=== PATIENT | female | born 1960 ===

== ENCOUNTER 2024-07-16 14:41 | Outpatient (AMB) | payer MEDICAID, SELFPAY ==
[2024-07-16 15:00] VITALS: BP 197/81; PULSE 100; RESP 18; TEMP 36.8; O2SAT 94; BMI 31.2
--- NOTE | 2024-07-16 15:00 | ORTHONT_ITS ---
Vital signs 07/16/24 15:00 Height 1.55 m Height Method Stated Weight 74.956 kg Weight Measurement Method Standing Scale BMI 31.2 BP 197/81 H Blood Pressure Source Automatic Cuff Blood Pressure Location Right Upper Arm Position Sitting Respiration 18 Pulse 100 Pulse Source Monitor Temp 98.2 F Temp Source Temporal Artery Scan Pulse Oximetry (%) 94 L Oxygen Delivery Method Room Air Med/Allergies Allergies & Medications Allergies bee venom protein (honey bee) Allergy (Severe, Verified 07/16/24 15:01) Anaphylaxis tetracycline Allergy (Severe, Verified 07/16/24 15:01) suicidal Medication Reconciliation acetaminophen 650 mg tablet,extended release 500 mg PO Q8H PRN fever or pain 08/13/20 [History Confirmed 07/16/24] docusate sodium 100 mg capsule (Colace) 100 mg PO BID #60 caps 08/14/20 [Rx Confirmed 07/16/24] hydrocodone 5 mg-acetaminophen 325 mg tablet ([place]) 1 tab PO Q6H PRN pain (scale score 7-10) #20 tabs 08/14/20 [Rx Confirmed 07/16/24] ibuprofen 600 mg tablet 600 mg PO Q8H PRN pain (scale score 4-6) #20 tabs 08/14/20 [Rx Confirmed 07/16/24] acetaminophen 300 mg-codeine 30 mg tablet 1 tab PO Q6H PRN pain #15 tabs 04/06/24 [Rx Confirmed 07/16/24] acetaminophen 300 mg-codeine 30 mg tablet 1 tab PO Q6H PRN pain #30 tabs 04/06/24 [Rx Confirmed 07/16/24] ibuprofen 600 mg tablet 600 mg PO Q6H PRN pain #30 tabs 04/06/24 [Rx Confirmed 07/16/24] meloxicam 7.5 mg tablet 7.5 mg PO QDAY #45 tabs 07/16/24 [Rx] Subjective Visit Visit for: new patient and knee Immunization / Flu Flu Vaccine in the Last 12 Months: Yes Flu Vaccine Exclusion Criteria: Already Received History of Present Illness Chief complaint: KNEE PAIN Date of injury / onset of symptoms: AMEENA Rodriguez is a pleasant 63-year-old female withLeft knee pain. This been ongoing for 4 months after a chiropractor twisted her knee. She has not had any injections. She has been taking a lot of ibuprofen a day. She has been taking 2400 mg. We described that we can try a anti-inflammatory such as meloxicam. 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 Exam Exam Patient is in no acute distress and is cooperative with the examination today. Breathing is nonlabored. Patient has a normal mood and affect. Bilateral extremities were evaluated and demonstrates sensation intact to light touch. Palpable pedal pulses are present. No significant edema is present. Bilateral hips were examined. The patient has no pain with log roll of the hips. Internal rotation to 30 degrees and external rotation to 30 degrees is painless. Negative FADIR. Right knee was examined today. The right knee is in reasonable alignment. Range of motion from 0-120 degrees. Knee is stable to varus and valgus as well as AP translation with <5mm. Patient has a negative McMurrays. There is no pain with patellofemoral compression and no crepitus noted. The knee is nontender to palpation. Left knee was examined today. The left knee is in [varus] alignment. Range of motion from [0-115] degrees. Knee is stable to varus and valgus as well as AP translation with <5mm. Patient has a [negative] McMurrays. There is [no] pain with patellofemoral compression and [no] crepitus noted. The knee is [tender] to palpation [medially]. An MRI demonstrates a degenerative meniscal tear. X-rays demonstrate a mild arthritis Assessment and Plan Problem List (1) Arthritis of left knee: Status: Acute Plan: Patient is a 63-year-old female with left knee pain and left knee arthritis. We will order x-rays That are weightbearing. Will likely get authorization for injections at the next visit she has not had injections. She likely has arthritis. Office Procedures GNS Level of Care Nursing/Assessment Patient Status: Established Patient Nursing Assessment/Reassesment: Medication Reconciliation, Update PMH in EMR and Vital Signs Coordination of Care: Complex Care and Chronic Disease 1-5, Education Complex Pt/Fam, Consent,records obtained, informed consent, Results/Orders obtained and Staff clarify orders Established Patient Charge Established Patient Point Assignment: 95 Established Patient Point Charge: EP Level 3 (80-115) Past Medical History Past Medical History Have you ever been diagnosed with any of the following: Neurological Problems Seizures: No Peripheral Neuropathy: Yes (sciatica both) Head Trauma: Yes (2018 concussion) Cardiology Problems Congestive Heart Failure: No Edema: No Cellulitis: No Hypertension: Yes Respiratory Problems Chronic Obstructive Pulmonary Disease (COPD): No Smoking: No Smoking Exposure: No Genital/Urinary Problems Renal Disease: No Reproductive Problems Endometriosis: Yes Previous Pregnancies: No Musculoskeletal Problems Arthritis: Yes Carpal Tunnel Syndrome: Yes (bilat) Fractures: Yes (nose 2018) Endocrine Problems Diabetes Mellitus Type 1: No Diabetes Mellitus Type 2: Yes Other Problems Falls: Yes (2018 at work) Blood Transfusions: No Anesthesia Reactions: Yes (emotional) Chemotherapy: No Radiation Therapy: No MRSA: No Cancer: No Surgical History Pacemaker: No
== END 2024-07-16 15:16 | disposition home or self-care (01) ==
PROVIDERS: PCP Family Medicine; Referring Provider Family Medicine; Supervising Provider Orthopaedic Surgery Adult Reconstructive Orthopaedic Surgery; Visit Provider Orthopaedic Surgery Adult Reconstructive Orthopaedic Surgery
DX: M17.12 Unilateral primary osteoarthritis, left knee (principal); M25.562 Pain in left knee; I10 Essential (primary) hypertension
CPT/HCPCS: 99213; G0463

== ENCOUNTER 2024-07-30 14:30 | Outpatient (AMB) | payer MEDICAID, SELFPAY ==
[2024-07-30 14:38] VITALS: BP 155/79; PULSE 90; RESP 18; TEMP 36.5; O2SAT 96; BMI 31.4
--- NOTE | 2024-07-30 14:38 | ORTHONT_ITS ---
Vital signs 07/30/24 14:38 Height 1.55 m Height Method Stated Weight 75.438 kg Weight Measurement Method Standing Scale BMI 31.4 BP 155/79 H Blood Pressure Source Automatic Cuff Blood Pressure Location Right Upper Arm Position Sitting Respiration 18 Pulse 90 Pulse Source Monitor Temp 97.7 F Temp Source Temporal Artery Scan Pulse Oximetry (%) 96 Oxygen Delivery Method Room Air Med/Allergies Allergies & Medications Allergies bee venom protein (honey bee) Allergy (Severe, Verified 07/30/24 14:39) Anaphylaxis tetracycline Allergy (Severe, Verified 07/30/24 14:39) suicidal Medication Reconciliation acetaminophen 650 mg tablet,extended release 500 mg PO Q8H PRN fever or pain 08/13/20 [History Confirmed 07/30/24] docusate sodium 100 mg capsule (Colace) 100 mg PO BID #60 caps 08/14/20 [Rx Confirmed 07/30/24] hydrocodone 5 mg-acetaminophen 325 mg tablet ([place]) 1 tab PO Q6H PRN pain (scale score 7-10) #20 tabs 08/14/20 [Rx Confirmed 07/30/24] acetaminophen 300 mg-codeine 30 mg tablet 1 tab PO Q6H PRN pain #15 tabs 04/06/24 [Rx Confirmed 07/30/24] acetaminophen 300 mg-codeine 30 mg tablet 1 tab PO Q6H PRN pain #30 tabs 04/06/24 [Rx Confirmed 07/30/24] ibuprofen 600 mg tablet 600 mg PO Q6H PRN pain #30 tabs 04/06/24 [Rx Confirmed 07/30/24] meloxicam 7.5 mg tablet 7.5 mg PO QDAY #45 tabs 07/16/24 [Rx Confirmed 07/30/24] ibuprofen 600 mg tablet 600 mg PO Q8H PRN pain (scale score 4-6) #60 tabs 07/18/24 [Rx Confirmed 07/30/24] Subjective Visit Visit for: follow up visit and x-rays (RESULTS) Immunization / Flu Flu Vaccine in the Last 12 Months: No Flu Vaccine Exclusion Criteria: No Exclusion Criteria History of Present Illness Chief complaint: XRAY RESULTS Date of injury / onset of symptoms: AMEENA Rodriguez is a pleasant 63-year-old female withLeft knee pain. This been ongoing for 4 months after a chiropractor twisted her knee. She has not had any injections. She has been taking a lot of ibuprofen a day. She has been taking 2400 mg. We described that we can try a anti-inflammatory such as meloxicam. She wants to hold off on a cortisone injection today. 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 Exam Exam Patient is in no acute distress and is cooperative with the examination today. Breathing is nonlabored. Patient has a normal mood and affect. Bilateral extremities were evaluated and demonstrates sensation intact to light touch. Palpable pedal pulses are present. No significant edema is present. Bilateral hips were examined. The patient has no pain with log roll of the hips. Internal rotation to 30 degrees and external rotation to 30 degrees is painless. Negative FADIR. Right knee was examined today. The right knee is in reasonable alignment. Range of motion from 0-120 degrees. Knee is stable to varus and valgus as well as AP translation with <5mm. Patient has a negative McMurrays. There is no pain with patellofemoral compression and no crepitus noted. The knee is nontender to palpation. Left knee was examined today. The left knee is in [varus] alignment. Range of motion from [0-115] degrees. Knee is stable to varus and valgus as well as AP translation with <5mm. Patient has a [negative] McMurrays. There is [no] pain with patellofemoral compression and [no] crepitus noted. The knee is [tender] to palpation [medially]. An MRI demonstrates a degenerative meniscal tear. X-rays demonstrate Significant joint space narrowing medially Assessment and Plan Problem List (1) Arthritis of left knee: Status: Acute Plan: Patient is a 63-year-old female with left knee pain and left knee arthritis. We discussed his significant arthritis of the left knee. She is fine with medications for now and does not want an injection at this time. We discussed that she should call to make an appointment that should she have increased pain or need for an injection Office Procedures GNS Level of Care Nursing/Assessment Patient Status: Established Patient Nursing Assessment/Reassesment: Medication Reconciliation, Update PMH in EMR and Vital Signs Coordination of Care: Complex Care and Chronic Disease 1-5, Education Complex Pt/Fam, Consent,records obtained, informed consent, Results/Orders obtained and Staff clarify orders Established Patient Charge Established Patient Point Assignment: 95 Established Patient Point Charge: EP Level 3 (80-115) Past Medical History Past Medical History Have you ever been diagnosed with any of the following: Neurological Problems Seizures: No Peripheral Neuropathy: Yes (sciatica both) Head Trauma: Yes (2018 concussion) Cardiology Problems Congestive Heart Failure: No Edema: No Cellulitis: No Hypertension: Yes Respiratory Problems Chronic Obstructive Pulmonary Disease (COPD): No Smoking: No Smoking Exposure: No Genital/Urinary Problems Renal Disease: No Reproductive Problems Endometriosis: Yes Previous Pregnancies: No Musculoskeletal Problems Arthritis: Yes Carpal Tunnel Syndrome: Yes (bilat) Fractures: Yes (nose 2018) Endocrine Problems Diabetes Mellitus Type 1: No Diabetes Mellitus Type 2: Yes Other Problems Falls: Yes (2018 at work) Blood Transfusions: No Anesthesia Reactions: Yes (emotional) Chemotherapy: No Radiation Therapy: No MRSA: No Cancer: No Surgical History Pacemaker: No
== END 2024-07-30 14:57 | disposition home or self-care (01) ==
PROVIDERS: PCP Family Medicine; Referring Provider Family Medicine; Supervising Provider Orthopaedic Surgery Adult Reconstructive Orthopaedic Surgery; Visit Provider Orthopaedic Surgery Adult Reconstructive Orthopaedic Surgery
DX: M17.12 Unilateral primary osteoarthritis, left knee (principal); M25.562 Pain in left knee; I10 Essential (primary) hypertension; E11.9 Type 2 diabetes mellitus without complications
CPT/HCPCS: 99213; G0463

== ENCOUNTER 2024-12-05 14:11 | Emergency (ER) | payer MEDICAID, SELFPAY ==
[2024-12-05 14:42] VITALS: BP 146/70; PULSE 87; RESP 18; TEMP 36.9; O2SAT 99
--- NOTE | 2024-12-05 14:46 | XR_ITS ---
Examination: Toes, right foot 3 views Technique: Toes AP oblique lateral 3 views Date and time of exam: December 05, 2024 1452 hours INDICATIONS: Injury to the foot today with second digit pain. FINDINGS: Acute fracture distal aspect proximal phalanx second digit with mild offset on the lateral view No dislocation IMPRESSION: Acute fracture proximal phalanx second digit
--- NOTE | 2024-12-05 14:46 | PD.EDLOWEX ---
Lower Extremity Injury RME/HPI General Chief Complaint: Extremity Injury, Lower Stated Complaint: INJURY TO RIGHT SECOND TOE Time Seen by Provider: 12/05/24 14:17 Arrival date/time: 12/05/24 14:11 RME / HPI RME / HPI Narrative: 64-year-old female patient with significant history of diabetes mellitus, came in for evaluation regarding right second to pain and bruising. Patient accidentally hit her right second toe resulted of bruising, pain, worse with ambulation. Incident happened yesterday. Patient is ambulatory. Denies any other injury. No medication was taken prior to arrival. Related Data Home Medications ?Medication ?Instructions ?Recorded ?Confirmed acetaminophen 650 mg 500 mg PO Q8H PRN fever or pain 08/13/20 07/30/24 tablet,extended release Held on 08/14/20. Instructions: Resume on 08/26/20. Previous Rx's ?Medication ?Instructions ?Recorded docusate sodium 100 mg capsule 100 mg PO BID #60 caps 08/14/20 (Colace) hydrocodone 5 mg-acetaminophen 325 1 tab PO Q6H PRN pain (scale score 08/14/20 mg tablet ([place]) 7-10) #20 tabs acetaminophen 300 mg-codeine 30 mg 1 tab PO Q6H PRN pain #15 tabs 04/06/24 tablet acetaminophen 300 mg-codeine 30 mg 1 tab PO Q6H PRN pain #30 tabs 04/06/24 tablet ibuprofen 600 mg tablet 600 mg PO Q6H PRN pain #30 tabs 04/06/24 ibuprofen 600 mg tablet 600 mg PO Q8H PRN pain (scale 07/18/24 score 4-6) #60 tabs meloxicam 7.5 mg tablet 7.5 mg PO QDAY #45 tabs 11/14/24 Allergies Allergy/AdvReac Type Severity Reaction Status Date / Time bee venom protein (honey bee) Allergy Severe Anaphylaxis Verified 12/05/24 14:16 tetracycline Allergy Severe suicidal Verified 12/05/24 14:16 Review of Systems Review of Systems Narrative Review of Systems: Review of system reviewed and within normal limits except mentioned in HPI ED Exam Narrative Physical exam: VITAL SIGNS: Reviewed. GENERAL APPEARANCE: Alert and interactive, follows commands, no acute distress, HEAD AND FACE: Non-traumatic. ENT: PERRL, pink conjunctivitis, eyelid no trauma, Mucous membrane moist. NECK: Supple, nontender, no nuchal rigidity. CHEST: No tenderness, no crepitus, no paradoxical movement, no retractions. LUNGS: Clear, well ventilated, symmetric, no rales, no wheezing, no ronchi, no stridor, good breath sounds bilaterally. HEART: Regular rate, regular rhythm, no murmur, no gallops. ABDOMEN: Soft, positive bowel sounds, nondistended, no guarding, nontender, no rebound, no masses, RECTAL: Deferred. GENITAL: Deferred. NEUROLOGICAL: Gross motor function intact sensory function intact, Appropriate for age. MUSCULOSKELETAL: low back nontender, full range of motion. EXTREMITIES: Right second toe bruising, tenderness, with limitation range of motion. No cyanosis noted no skin breakdown noted SKIN: Color pink, dry, no rash, no lacerations, no abrasions, no contusions. LYMPHATICS: Deferred. Course Quality Measures none Orders Category Date Time Status XR toe RT min 2V Stat Exams 12/05/24 14:46 Completed Vital Signs Vital signs: Vital Signs Temperature 98.5 F 12/05/24 14:42 Pulse Rate 87 12/05/24 14:42 Respiratory Rate 18 12/05/24 14:42 Blood Pressure 146/70 H 12/05/24 14:42 Pulse Oximetry (%) 99 12/05/24 14:42 Oxygen Delivery Method Room Air 12/05/24 14:42 Extremity Injury, Lower [facility] Narrative [facility] Narrative:: 64-year-old female patient with significant history of diabetes mellitus, came in for evaluation regarding right second to pain and bruising. Patient accidentally hit her right second toe resulted of bruising, pain, worse with ambulation. Incident happened yesterday. Patient is ambulatory. Denies any other injury. No medication was taken prior to arrival. X-ray of the foot showed minimally displaced fracture of the proximal phalanx to the second toe right Ortho shoe applied. Patient data External records reviewed:: None Clinical information provided by:: patient Social determinants that could affect healthcare access:: none Patient has the following chronic illnesses:: None How is presenting disease/condition affected by chronic disease/condition?: no chronic disease Evaluation data The following diagnostics were reviewed and interpreted by me:: radiology exam(s) Lab and/or radiology exams considered but not ordered:: None Interpretation Summary: See results in [facility] Medications / Prescriptions Medications or Prescriptions considered but not ordered:: None Medication administrations:: None Consultations Consultation(s) initiated? (list below): No Diagnosis Extremity Injury, Lower Differential Diagnosis: other (Toe fracture, toe sprain, toe dislocation) Most likely diagnosis given after review of the tests above:: Second toe fracture Admission Indicated Admission indicated?: not indicated Admission Request Was there a request for admission?: No Disposition Plan Disposition Plan: Discharge Discharge Attestation Discharge Attestation: The patient was given an opportunity to ask questions and understood the discharge instructions. Discharge instructions specifically effects, indications for sooner follow up or return to the emergency department, and the expected course of current diagnosis. Patient condition: Stable Discharge Plan Plan Patient Disposition: HOME (Self Care) Disposition Comment: Stable Prescriptions/Referrals Prescriptions/Med Rec: No Action ibuprofen 600 mg tablet 600 mg PO Q8H PRN (Reason: pain (scale score 4-6)) Qty: 60 2RF meloxicam 7.5 mg tablet 7.5 mg PO QDAY Qty: 45 3RF acetaminophen 650 mg tablet extended release 500 mg PO Q8H PRN (Reason: fever or pain) Rx Instructions: swallow whole; do not crush, chew, break, dissolve, cut, or open hydrocodone-acetaminophen [[place]] 5-325 mg tablet 1 tab PO Q6H MDD 4 PRN (Reason: pain (scale score 7-10)) Qty: 20 0RF docusate sodium [Colace] 100 mg capsule 100 mg PO BID Qty: 60 0RF ibuprofen 600 mg tablet 600 mg PO Q6H PRN (Reason: pain) Qty: 30 0RF acetaminophen-codeine 300-30 mg tablet 1 tab PO Q6H PRN (Reason: pain) Qty: 30 0RF acetaminophen-codeine 300-30 mg tablet 1 tab PO Q6H PRN (Reason: pain) Qty: 15 0RF Referrals: Yvan Mcneill [Primary Care Provider] - In 1 week Problem List Clinical Impression: Fracture of toe Patient/Caregiver Discharge Instructions Discharge Activity: activity as tolerated Education Materials: ED Fracture, Toe, Closed Additional Instructions: Thank you for the opportunity for serving you today. You are stable for discharged . You are advised to: Follow-up with your PCP in 1 to 2 days as per referral to podiatry Return to ED for worsening of symptoms Increase oral fluids Please wear the Ortho shoe for the next 4 weeks Take [id number] Tylenol or Motrin as needed for pain Print Language: Malagasy Stand Alone Forms: [facility] Award Info., Patient Portal Info Letter
== END 2024-12-05 18:05 | disposition home or self-care (01) ==
PROVIDERS: Emergency Provider Emergency Medicine; PCP Family Medicine
DX: S92.511A Displaced fracture of proximal phalanx of right lesser toe(s), initial encounter for closed fracture (principal); W22.8XXA Striking against or struck by other objects, initial encounter
CPT/HCPCS: 73660; 99283

== ENCOUNTER → 2025-01-06 | Outpatient (CLI) | payer MEDICAID, SELFPAY ==
--- NOTE | 2025-01-06 | XR_ITS ---
Examination: Foot, right, 3 views Technique: AP, oblique, lateral views foot, 3 views Date and time of exam: December 29, 2024 1205 hours INDICATIONS: History acute fracture proximal phalanx second digit December 05, 2024 FINDINGS: Partial healing fracture distal aspect proximal phalanx second digit with stable and satisfactory alignment IMPRESSION: Partial healing fracture proximal phalanx second digit with stable and satisfactory alignment
== END | disposition home or self-care (01) ==
PROVIDERS: PCP Family Medicine; Referring Provider Podiatrist; Visit Provider Podiatrist
DX: S92.511A Displaced fracture of proximal phalanx of right lesser toe(s), initial encounter for closed fracture (principal); X58.XXXA Exposure to other specified factors, initial encounter
CPT/HCPCS: 73630

== ENCOUNTER 2025-04-10 10:46 | Outpatient (AMB) | payer MEDICAID, SELFPAY ==
[2025-04-10 10:54] VITALS: BP 177/4; PULSE 110; RESP 19; TEMP 36.8; O2SAT 97; BMI 31.7
--- NOTE | 2025-04-10 10:54 | ORTHONT_ITS ---
Vital signs 04/10/25 10:54 Height 1.55 m Height Method Stated Weight 76.317 kg Weight Measurement Method Standing Scale BMI 31.7 BP 177/4 H Blood Pressure Source Automatic Cuff Blood Pressure Location Left Upper Arm Position Sitting Respiration 19 Pulse 110 H Pulse Source Monitor Temp 98.2 F Temp Source Temporal Artery Scan Pulse Oximetry (%) 97 Oxygen Delivery Method Room Air Med/Allergies Allergies & Medications Allergies bee venom protein (honey bee) Allergy (Severe, Verified 04/10/25 10:59) Anaphylaxis tetracycline Allergy (Severe, Verified 04/10/25 10:59) suicidal Medication Reconciliation acetaminophen 650 mg tablet,extended release 500 mg PO Q8H PRN fever or pain 08/13/20 [History Confirmed 04/10/25] Held on 08/14/20. Instructions: Resume on 08/26/20. docusate sodium 100 mg capsule (Colace) 100 mg PO BID #60 caps 08/14/20 [Rx Confirmed 04/10/25] hydrocodone 5 mg-acetaminophen 325 mg tablet (Biloxi) 1 tab PO Q6H PRN pain (scale score 7-10) #20 tabs 08/14/20 [Rx Confirmed 04/10/25] acetaminophen 300 mg-codeine 30 mg tablet 1 tab PO Q6H PRN pain #15 tabs 04/06/24 [Rx Confirmed 04/10/25] acetaminophen 300 mg-codeine 30 mg tablet 1 tab PO Q6H PRN pain #30 tabs [Rx Confirmed 04/10/25] ibuprofen 600 mg tablet 600 mg PO Q6H PRN pain #30 tabs 04/06/24 [Rx Confirmed 04/10/25] ibuprofen 600 mg tablet 600 mg PO Q8H PRN pain (scale score 4-6) #60 tabs 07/18/24 [Rx Confirmed 04/10/25] meloxicam 7.5 mg tablet 7.5 mg PO QDAY #45 tabs 11/14/24 [Rx Confirmed 04/10/25] Exam Exam Patient is in no acute distress and is cooperative with the examination today. Breathing is nonlabored. Patient has a normal mood and affect. Bilateral extremities were evaluated and demonstrates sensation intact to light touch. Palpable pedal pulses are present. No significant edema is present. Bilateral hips were examined. The patient has no pain with log roll of the hips. Internal rotation to 30 degrees and external rotation to 30 degrees is painless. Negative FADIR. Right knee was examined today. The right knee is in reasonable alignment. Range of motion from 0-120 degrees. Knee is stable to varus and valgus as well as AP translation with <5mm. Patient has a negative McMurrays. There is no pain with patellofemoral compression and no crepitus noted. The knee is nontender to palpation. Left knee was examined today. The left knee is in [varus] alignment. Range of motion from [0-115] degrees. Knee is stable to varus and valgus as well as AP translation with <5mm. Patient has a [negative] McMurrays. There is [no] pain with patellofemoral compression and [no] crepitus noted. The knee is [tender] to palpation [medially]. An MRI demonstrates a degenerative meniscal tear. X-rays demonstrate Significant joint space narrowing medially Assessment and Plan Problem List (1) Arthritis of left knee: Status: Acute Plan: Patient is a 63-year-old female with left knee pain and left knee arthritis. We discussed his significant arthritis of the left knee. Recommend knee cortisone injection as patient would like to proceed with conservative treatment at this time. The risks and benefits of the procedure were reviewed with the patient and patient gave verbal consent to continue with the procedure. Procedure: performed by Dr. Alcantara Using sterile technique the left knee was thoroughly prepped with alcohol, and approximately 1 cc of Depo-Medrol 80mg/mL and 4 cc of 0.2% ropivacaine was injected without resistance into the medial tibial femoral joint space. The patient tolerated the procedure. Office Procedures GNS Level of Care Nursing/Assessment Patient Status: Established Patient Nursing Assessment/Reassesment: Medication Reconciliation, Update PMH in EMR and Vital Signs Coordination of Care: Complex Care and Chronic Disease 1-5, Education Complex Pt/Fam, Consent,records obtained, informed consent, Results/Orders obtained and Staff clarify orders Established Patient Charge Established Patient Point Assignment: 95 Established Patient Point Charge: EP Level 3 (80-115) Surgical Proc/IM SQ injection Major Surgical Procedure: Yes (KNEE INJECTION) Medication Given Medication Given Medication Given: Yes Documented Dose Given: 1 Route: Infiitration Medication Given Medication Given Medication Given: Yes Documented Dose Given: 4 Route: Infiitration Office Meds methylprednisolone acetate 80 mg/mL suspension for injection Performing Provider: Laureano Alcantara MD Performing Location: [facility] Administered by: Laureano Alcantara MD on 04/10/25 12:03 Dose Route Admin Location Dispensed Lot Number Expiration Date [facility] Quality Control Clerk 80 mg intra-articular 1 mL [id number] 02/07/27 [address]-2 [facility]aine (PF) 2 mg/mL (0.2 %) injection solution Performing Provider: Laureano Alcantara MD Performing Location: [facility] Administered by: Laureano Alcantara MD on 04/10/25 12:03 Dose Route Admin Location Dispensed Lot Number Expiration Date [facility] Quality Control Clerk 20 mL Infiltration 20 mL [id number] 07/10/26 11592-023-89 [facility] Intake Visit Data Collection New Patient or Established: Established Patient (seen at [facility] within 3 years) Reason for Visit:: REQ L KNEE INJ Seen by Clinical Staff ONLY (RN/MA): No PCP or OBGYN visit in last 3 months: Yes Hx Now: No Do You Feel Safe at Home: Yes Authorities Contacted: N/A Questionairres Past Medical History Past Medical History Have you ever been diagnosed with any of the following: Neurological Problems Seizures: No Peripheral Neuropathy: Yes (sciatica both) Head Trauma: Yes (2018 concussion) Cardiology Problems Congestive Heart Failure: No Edema: No Cellulitis: No Hypertension: Yes Respiratory Problems Chronic Obstructive Pulmonary Disease (COPD): No Smoking: No Smoking Exposure: No Genital/Urinary Problems Renal Disease: No Reproductive Problems Endometriosis: Yes Previous Pregnancies: No Musculoskeletal Problems Arthritis: Yes Carpal Tunnel Syndrome: Yes (bilat) Fractures: Yes (nose 2018) Endocrine Problems Diabetes Mellitus Type 1: No Diabetes Mellitus Type 2: Yes Other Problems Falls: Yes (2018 at work) Blood Transfusions: No Anesthesia Reactions: Yes (emotional) Chemotherapy: No Radiation Therapy: No MRSA: No Cancer: No Surgical History Pacemaker: No Subjective Visit Visit for: follow up visit, knee and injections Immunization / Flu Flu Vaccine in the Last 12 Months: No Flu Vaccine Exclusion Criteria: No Exclusion Criteria History of Present Illness Chief complaint: left knee Jennifer is a pleasant 63-year-old female withLeft knee pain. This been ongoing for 4 months after a chiropractor twisted her knee. She has not had any injections. She has been taking a lot of ibuprofen a day. She has been taking 2400 mg. We described that we can try a anti-inflammatory such as meloxicam. Pain Pain level (0-10): 2 Pain duration: ON AND OFF Pain location: anterior Pain quality: aching Pain timing: increases with activity Ambulatory data Ambulatory device: none Treatments Improvement with previous injections: No Improvement with PT: No Improvement with NSAIDS: yes Review of Systems Review of Systems: All systems negative unless otherwise noted in HPI.
== END 2025-04-10 11:08 | disposition home or self-care (01) ==
LOC: HODSRG 10:46
PROVIDERS: Supervising Provider Orthopaedic Surgery Adult Reconstructive Orthopaedic Surgery; Visit Provider Orthopaedic Surgery Adult Reconstructive Orthopaedic Surgery
DX: M17.12 Unilateral primary osteoarthritis, left knee (principal); M25.562 Pain in left knee; I10 Essential (primary) hypertension; E11.9 Type 2 diabetes mellitus without complications
CPT/HCPCS: 20610; 99213; J1010; J2795; G0463

== ENCOUNTER 2025-07-11 10:38 | Outpatient (AMB) | payer MEDICAID, SELFPAY ==
--- NOTE | 2025-07-11 10:57 | ORTHONT_ITS ---
Vital signs 07/11/25 11:11 Height 1.55 m Height Method Stated Weight 75.75 kg Weight Measurement Method Standing Scale BMI 31.5 BP 149/75 H Blood Pressure Source Automatic Cuff Blood Pressure Location Left Upper Arm Position Sitting Respiration 18 Pulse 93 Pulse Source Monitor Temp 97.8 F Temp Source Temporal Artery Scan Pulse Oximetry (%) 98 Oxygen Delivery Method Room Air Med/Allergies Allergies & Medications Allergies bee venom protein (honey bee) Allergy (Severe, Verified 07/11/25 11:11) Anaphylaxis tetracycline Allergy (Severe, Verified 07/11/25 11:11) suicidal Medication Reconciliation acetaminophen 650 mg tablet,extended release 500 mg PO Q8H PRN fever or pain 08/13/20 [History Confirmed 07/11/25] Held on 08/14/20. Instructions: Resume on 08/26/20. docusate sodium 100 mg capsule (Colace) 100 mg PO BID #60 caps 08/14/20 [Rx Confirmed 07/11/25] hydrocodone 5 mg-acetaminophen 325 mg tablet (Golden) 1 tab PO Q6H PRN pain (scale score 7-10) #20 tabs 08/14/20 [Rx Confirmed 07/11/25] acetaminophen 300 mg-codeine 30 mg tablet 1 tab PO Q6H PRN pain #15 tabs 04/06/24 [Rx Confirmed 07/11/25] acetaminophen 300 mg-codeine 30 mg tablet 1 tab PO Q6H PRN pain #30 tabs 04/06/24 [Rx Confirmed 07/11/25] ibuprofen 600 mg tablet 600 mg PO Q6H PRN pain #30 tabs 04/06/24 [Rx Confirmed 07/11/25] ibuprofen 600 mg tablet 600 mg PO Q8H PRN pain (scale score 4-6) #60 tabs 07/18/24 [Rx Confirmed 07/11/25] meloxicam 7.5 mg tablet 7.5 mg PO QDAY #45 tabs 11/14/24 [Rx Confirmed 07/11/25] Exam Exam Patient is in no acute distress and is cooperative with the examination today. Breathing is nonlabored. Patient has a normal mood and affect. Bilateral extremities were evaluated and demonstrates sensation intact to light touch. Palpable pedal pulses are present. No significant edema is present. Bilateral hips were examined. The patient has no pain with log roll of the hips. Internal rotation to 30 degrees and external rotation to 30 degrees is painless. Negative FADIR. Right knee was examined today. The right knee is in reasonable alignment. Range of motion from 0-120 degrees. Knee is stable to varus and valgus as well as AP translation with <5mm. Patient has a negative McMurrays. There is no pain with patellofemoral compression and no crepitus noted. The knee is nontender to palpation. Left knee was examined today. The left knee is in [varus] alignment. Range of motion from [0-115] degrees. Knee is stable to varus and valgus as well as AP translation with <5mm. Patient has a [negative] McMurrays. There is [no] pain with patellofemoral compression and [no] crepitus noted. The knee is [tender] to palpation [medially]. An MRI demonstrates a degenerative meniscal tear. X-rays demonstrate Significant joint space narrowing medially Assessment and Plan Problem List (1) Arthritis of left knee: Status: Acute Plan: Patient is a 63-year-old female with left knee pain and left knee arthritis. We discussed his significant arthritis of the left knee. Recommend knee cortisone injection as patient would like to proceed with conservative treatment at this time. The risks and benefits of the procedure were reviewed with the patient and patient gave verbal consent to continue with the procedure. Procedure: performed by Dr. Alcantara Using sterile technique the left knee was thoroughly prepped with alcohol, and approximately 1 cc of Depo-Medrol 80mg/mL and 4 cc of 0.2% ropivacaine was injected without resistance into the medial tibial femoral joint space. The patient tolerated the procedure. Office Procedures GNS Level of Care Nursing/Assessment Patient Status: Established Patient Nursing Assessment/Reassesment: Medication Reconciliation, Update PMH in EMR and Vital Signs Coordination of Care: Complex Care and Chronic Disease 1-5, Education Complex Pt/Fam, Consent,records obtained, informed consent, Results/Orders obtained and Staff clarify orders Established Patient Charge Established Patient Point Assignment: 95 Established Patient Point Charge: EP Level 3 (80-115) Medication Given Medication Given Medication Given: No Medication Given Medication Given Medication Given: Yes Documented Dose Given: 1 Route: Infiitration Medication Given Medication Given Medication Given: Yes Documented Dose Given: 4 Route: Infiitration Medication Given Medication Given Medication Given: No Office Meds methylprednisolone acetate 80 mg/mL suspension for injection Performing Provider: Laureano Alcantara MD Performing Location: [facility] Documented (not given) by: Sahra Villaseñor on 07/11/25 11:13 Dose Route Admin Location Dispensed Lot Number Expiration Date Pack age [facility] Account Services Analyst 80 mg intra-articular mL methylprednisolone acetate 80 mg/mL suspension for injection Performing Provider: Laureano Alcantara MD Performing Location: [facility] Administered by: Laureano Alcantara MD on 07/11/25 11:12 Dose Route Admin Location Dispensed Lot Number Expiration Date Pack age [facility] Account Services Analyst 80 mg intra-articular 1 mL [id number] 04/09/27 [address]-3 7 [id number] [employer] ropivacaine (PF) 2 mg/mL (0.2 %) injection solution Performing Provider: Laureano Alcantara MD [facility] Administered by: Laureano Alcantara MD on 07/11/25 11:12 Dose Route Admin Location Dispensed Lot Number Expiration Date Pack age [facility] Account Services Analyst 20 mL Infiltration 20 mL [id number] 10/10/27 06269-445-17 [id number] [facility] ropivacaine (PF) 2 mg/mL (0.2 %) injection solution Performing Provider: Laureano Alcantara MD [facility] Documented (not given) by: Sahra Villaseñor on 07/11/25 11:12 Dose Route Admin Location Dispensed Lot Number Expiration Date Pack age [facility] Account Services Analyst 20 mL Infiltration mL MA Intake Visit Data Collection New Patient or Established: Established Patient (seen at [facility] within 3 years) Reason for Visit:: REQ L KNEE INJ Seen by Clinical Staff ONLY (RN/MA): No PCP or OBGYN visit in last 3 months: Yes Hx Now: No Do You Feel Safe at Home: Yes Authorities Contacted: N/A Questionairres Past Medical History Past Medical History Have you ever been diagnosed with any of the following: Neurological Problems Seizures: No Peripheral Neuropathy: Yes (sciatica both) Head Trauma: Yes (2018 concussion) Cardiology Problems Congestive Heart Failure: No Edema: No Cellulitis: No Hypertension: Yes Respiratory Problems Chronic Obstructive Pulmonary Disease (COPD): No Smoking: No Smoking Exposure: No Genital/Urinary Problems Renal Disease: No Reproductive Problems Endometriosis: Yes Previous Pregnancies: No Musculoskeletal Problems Arthritis: Yes Carpal Tunnel Syndrome: Yes (bilat) Fractures: Yes (nose 2018) Endocrine Problems Diabetes Mellitus Type 1: No Diabetes Mellitus Type 2: Yes Other Problems Falls: Yes (2018 at work) Blood Transfusions: No Anesthesia Reactions: Yes (emotional) Chemotherapy: No Radiation Therapy: No MRSA: No Cancer: No Surgical History Pacemaker: No Subjective Visit Visit for: follow up visit, knee and injections Immunization / Flu Flu Vaccine in the Last 12 Months: No Flu Vaccine Exclusion Criteria: No Exclusion Criteria History of Present Illness Chief complaint: left knee Jennifer is a pleasant 63-year-old female withLeft knee pain. This been ongoing for 4 months after a chiropractor twisted her knee. She has not had any i njections. She has been taking a lot of ibuprofen a day. She has been taking 2400 mg. Pain Pain level (0-10): 2 Pain duration: ON AND OFF Pain location: anterior Pain quality: aching Pain timing: increases with activity Ambulatory data Ambulatory device: none Treatments Improvement with previous injections: No Improvement with PT: No Improvement with NSAIDS: yes Review of Systems Review of Systems: All systems negative unless otherwise noted in HPI.
[2025-07-11 11:11] VITALS: BP 149/75; PULSE 93; RESP 18; TEMP 36.6; O2SAT 98; BMI 31.5
== END 2025-07-11 11:23 | disposition home or self-care (01) ==
LOC: HODSRG 10:38
PROVIDERS: PCP Family Medicine; Referring Provider Family Medicine; Supervising Provider Orthopaedic Surgery Adult Reconstructive Orthopaedic Surgery; Visit Provider Orthopaedic Surgery Adult Reconstructive Orthopaedic Surgery
DX: M25.562 Pain in left knee (principal); M17.12 Unilateral primary osteoarthritis, left knee
CPT/HCPCS: 20610; 99213; J1010; J2795; G0463

== ENCOUNTER 2025-08-07 02:59 | Emergency (ER) | payer MEDICAID, SELFPAY ==
[2025-08-07 03:01] VITALS: BMI 31.9
[2025-08-07 03:06] VITALS: BP 161/74; PULSE 112; RESP 20; TEMP 37.1; O2SAT 98
--- NOTE | 2025-08-07 03:14 | XR_ITS ---
Examination: CT abdomen and pelvis without contrast. Coronal 3-D reconstructions. Sagittal 2-D reconstructions. Date and time of exam: August 07, 2025, 0412 hours INDICATIONS: Right upper abdominal pain today CTDI: vol (mGy): 12.01 DLP: (mGycm): 690 Technique: Axial images of the abdomen have been obtained, 3 mm slice thickness Intravenous contrast material has not been administered. Low dose protocols were performed. One or more of the following dose reduction techniques were used; automated exposure control, adjustment of the mA and/or KV according to patient size, use of iterative reconstruction technique. Findings: Liver mildly irregular in contour Distended gallbladder No splenic lesions No pancreatic or adrenal mass Perinephric stranding,, tiny bilateral 1 mm renal calculi, no hydronephrosis or ureteral calculi Normal appendix No bowel obstruction No bladder mass or bladder calculi Atrophic uterus Bladder prolapse on the lateral view IMPRESSION: Moderate hepatomegaly, suspicious for primary hepatocellular disease Distended gallbladder Tiny nonobstructing bilateral renal calculi Perinephric stranding, consider urinary tract infection nephritis Bladder prolapse
--- NOTE | 2025-08-07 03:15 | XR_ITS ---
Examination: Abdomen sonogram, Limited Date and time of exam: August 07, 2025, 0419 hours INDICATIONS: Right upper abdominal pain beginning several hours ago Technique: Real-time licea scale transabdominal sonographic images of the upper abdomen obtained. Findings: Gallstones Gallbladder wall 0.30 cm Common bile duct 0.70 cm Pancreatic head 2.6 cm Liver 16.0 cm no liver lesions Normal hepatopetal portal venous flow Patent IVC IMPRESSION: Cholelithiasis, negative for cholecystitis Enlarged common bile duct 0.70 cm, clinical correlation advised, no common hepatic duct stones noted
--- NOTE | 2025-08-07 03:16 | EDNOTE_ITS ---
ED Abdominal Pain RME/HPI General Chief Complaint: Abdominal Pain Stated complaint: RIGHT UPPER ABD PAIN Time seen by provider: 08/07/25 03:13 Arrival date/time: 08/07/25 02:59 RME / HPI RME / HPI narrative: See [facility] for Dr. Hall's HPI Documentation. Related Data Home Medications ?Medication ?Instructions ?Recorded ?Confirmed acetaminophen 650 mg 500 mg PO Q8H PRN fever or p ain 08/13/20 07/11/25 tablet,extended release Held on 08/14/20. Instructions: Resume on 08/26/20. Previous Rx's ?Medication ?Instructions ?Recorded docusate sodium 100 mg capsule 100 mg PO BID #60 caps 08/14/20 (Colace) hydrocodone 5 mg-acetaminophen 325 1 tab PO Q6H PRN pa in (scale score 08/14/20 mg tablet ([place]) 7-10) #20 tabs acetaminophen 300 mg-codeine 30 mg 1 tab PO Q6H PRN pa in #15 tabs 04/06/24 tablet acetaminophen 300 mg-codeine 30 mg 1 tab PO Q6H PRN pa in #30 tabs 04/06/24 tablet ibuprofen 600 mg tablet 600 mg PO Q6H PRN pain #30 t abs 04/06/24 ibuprofen 600 mg tablet 600 mg PO Q8H PRN pain (scal e 07/18/24 score 4-6) #60 tabs meloxicam 7.5 mg tablet 7.5 mg PO QDAY #45 tabs 03/0 03/05 Allergies Allergy/AdvReac Type Severity Reaction Status Date / Time bee venom protein (honey bee) Allergy Severe Anaphylaxis Verified 08/07/25 03:00 tetracycline Allergy Severe suicidal Verified 08/07/25 03:00 Review of Systems Review of Systems Systems Reviewed: All systems reviewed, normal except as documented Past Medical History Past Medical History NEUROLOGIC: Positive Peripheral Neuropathy (sciatica both) and Head Trauma (2018 concussion) CARDIAC: Positive Hypertension REPRODUCTIVE: Positive Endometriosis MUSCULOSKELETAL: Positive Musculoskeletal Disorders, Arthritis, Carpal Tunnel Syndrome (bilat) and Fractures (nose 2018) ENT: Positive Head Trauma (2018 concussion) ENDOCRINE: Positive Diabetes Mellitus Type 2 OTHER HISTORY: Positive Falls (2018 at work) and Anesthesia Reactions (emotional) Family History FAMILY HISTORY: Positive Family Cancer (mother colon cancer) and Family Surgery (mother amputation) ED Exam Narrative Physical exam: See [facility] for Dr. Hall's Physical Exam Documentation. Course Quality Measures none Orders Category Date Time Status Saline [Insert IV] NOW Care 08/07/25 03:14 Active Straight [In and Out Catheter] X1 Care 08/07/25 03:[address] abdomen pelvis wo con Stat Exams 08/07/25 03:14 Taken US gall bladder Stat Exams 08/07/25 03:15 Taken Amylase Stat Lab 08/07/25 03:30 Completed Bilirubin,Direct Stat Lab 08/07/25 03:30 Completed CBC Stat Lab 08/07/25 03:30 Completed CMP [Comprehensive Metabolic Panel] Stat Lab 08/07/25 03:30 Completed Lipase Stat Lab 08/07/25 03:30 Completed Magnesium Stat Lab 08/07/25 03:30 Completed UA, C/S IF [Urinalysis, C/S if Indicated] Stat Lab 08/07/25 03:15 Ordered Ketorolac Inj [Toradol Inj] Med 08/07/25 03:14 Discontinued 30 mg IVP X1 ONE Magnesium Sulfate 2 GM Ivpb [Magnesium Sulfate Ivpb] Med 08/07/25 04:23 Active 2 gm in 50 ml IV X1 Morphine* Inj Med 08/07/25 03:14 Discontinued 4 mg IV X1 ONE Ondansetron Inj [Zofran Inj] Med 08/07/25 03:14 Discontinued 4 mg IVP X1 ONE Ondansetron Inj [Zofran Inj] Med 08/07/25 04:31 Discontinued 4 mg IVP X1 ONE Sodium Chloride 0.9% 1000 ml [Ns] 1,000 ml Med 08/07/25 04:45 Active IV 500 mls/hr Sodium Chloride 0.9% 1000 ml [Ns] 1,000 ml Med 08/07/25 03:14 Discontinued IV 999 mls/hr Vital Signs Vital signs: Vital Signs Temperature 98.8 F 08/07/25 03:06 Pulse Rate 112 H 08/07/25 03:06 Respiratory Rate 20 08/07/25 03:06 Blood Pressure 161/74 H 08/07/25 03:06 Pulse Oximetry (%) 98 08/07/25 03:06 Oxygen Delivery Method Room Air 08/07/25 03:06 Abdominal Pain MDM MDM Narrative MDM Narrative:: This section includes all my notes and documentations, including HPI, PE, and ED course. Cecilio Hall MD HPI: 64 y/o female with Hx of HTN and Type II DM here with right sided abdominal pain and vomiting for about 24 hours. No hematemesis or coffee-ground emesis. No rectal bleeding or tarry stools. No fever or chills. No urinary symptoms. No other complaints. ROS: All negative except as documented in HPI. Physical Exam: General: Alert and oriented. In obvious pain with active vomiting. Eyes: Conjunctivae and lids clear. ENT: No nasal congestion. Neck: Supple. Heart: RRR. Lungs: No respiratory distress. Good air movement. No rhonchi, wheezing, ral es. Abdomen: Soft with RUQ tenderness. Decreased sounds. No distension. No rebound or guarding. Back: No CVA tenderness. Skin: Warm and dry. Neuro: Alert and oriented X 3. I ordered IVF, Zofran 4 mg IV, Toradol 30 mg IV, morphine 4 mg IV, and diagnostic tests. At 0600 on 08/07/2025, the care of the patient was transferred to Dr. Cline. Cecilio Hall MD Patient data External records reviewed:: [facility] previous records (Reviewed prior ED records from 12/05/24. Patient was seen for Fracture of toe.) Clinical information provided by:: patient Social determinants that could affect healthcare access:: none Patient has the following chronic illnesses:: Sciatica, Hypertension, Endometriosis, Arthritis, Carpal Tunnel Syndrome, Diabetes Mellitus Type 2 How is presenting disease/condition affected by chronic disease/condition?: exacerbated by Evaluation data The following diagnostics were reviewed and interpreted by me:: lab results and radiology exam(s) Lab and/or radiology exams considered but not ordered:: None Interpretation Summary: Complete diagnostic tests are pending. Medications / Prescriptions Medications or Prescriptions considered but not ordered:: None Medication administrations:: Medication Administration History Magnesium Sulfate (Magnesium Sulfate Ivpb) 2 gm in 50 mls @ 25 mls/hr IV X1 ONE Stop: 08/07/25 06:22 Last Admin: 08/07/25 04:52 Dose: 25 mls/hr Documented By: CCT Sodium Chloride (Ns) 1,000 mls @ 500 mls/hr IV .Q2H ONE Stop: 08/07/25 06:44 Last Admin: 08/07/25 05:30 Dose: 500 mls/hr Documented By: CCT Discontinued Medications Sodium Chloride (Ns) 1,000 mls @ 999 mls/hr IV .Q1H1M ONE Stop: 08/07/25 04:14 Last Infusion: 08/07/25 05:30 Dose: Infused Documented By: Admin: 08/07/25 03:27 Dose: 999 mls/hr Documented By: AC Ketorolac Tromethamine (Ketorolac Inj 30 Mg/Ml Vial) 30 mg IVP X1 ONE Stop: 08/07/25 03:15 Last Admin: 08/07/25 03:28 Dose: 30 mg Documented By: AC Morphine Sulfate (Morphine Sulf Inj 4 Mg/Ml Vial) 4 mg IV X1 ONE Stop: 08/07/25 03:15 Last Admin: 08/07/25 03:28 Dose: 4 mg Documented By: AC Ondansetron HCl (Ondansetron Inj 2 Mg/Ml Inj 2 Ml) 4 mg IVP X1 ONE; Protocol Stop: 08/07/25 03:15 Last Admin: 08/07/25 03:28 Dose: 4 mg Documented By: AC Ondansetron HCl (Ondansetron Inj 2 Mg/Ml Inj 2 Ml) 4 mg IVP X1 ONE; Protocol Stop: 08/07/25 04:32 Last Admin: 08/07/25 04:52 Dose: 4 mg Documented By: CCT I ordered IVF, Zofran 4 mg IV, Toradol 30 mg IV, and morphine 4 mg IV. Consultations Consultation(s) initiated? (list below): No Diagnosis Differential diagnosis abdominal pain: abdominal pain, acute appendicitis, calculus of kidney, constipation, diverticulitis, endometriosis, gastroen teritis, pancreatitis, small bowel obstruction and other (Cholecystitis, Cholelithiasis, gastritis, PUD, GERD) Most likely diagnosis given after review of the tests above:: Complete diagnostic tests are pending. Admission Indicated Admission indicated?: not indicated Explain why admission is indicated or not indicated:: Complete diagnostic tests are pending. Admission Request Was there a request for admission?: No Disposition Plan Disposition Plan: other (specify) (At 0600 on 08/07/2025, the care of the patient was transferred to Dr. Cline. ) Discharge Plan Prescriptions/Referrals Prescriptions/Med Rec: No Action ropivacaine (PF) 2 mg/mL (0.2 %) solution 20 ml Infiltration X1 Qty: 20 0RF methylprednisolone acetate 80 mg/mL suspension 80 mg intra-articular X1 Qty: 1 0RF ibuprofen 600 mg tablet 600 mg PO Q8H PRN (Reason: pain (scale score 4-6)) Qty: 60 2RF meloxicam 7.5 mg tablet 7.5 mg PO QDAY Qty: 45 3RF acetaminophen 650 mg tablet extended release 500 mg PO Q8H PRN (Reason: fever or pain) Rx Instructions: swallow whole; do not crush, chew, break, dissolve, cut, or open hydrocodone-acetaminophen [[place]resco] 5-325 mg tablet 1 tab PO Q6H MDD 4 PRN (Reason: pain (scale score 7-10)) Qty: 20 0RF docusate sodium [Colace] 100 mg capsule 100 mg PO BID Qty: 60 0RF ibuprofen 600 mg tablet 600 mg PO Q6H PRN (Reason: pain) Qty: 30 0RF acetaminophen-codeine 300-30 mg tablet 1 tab PO Q6H PRN (Reason: pain) Qty: 30 0RF acetaminophen-codeine 300-30 mg tablet 1 tab PO Q6H PRN (Reason: pain) Qty: 15 0RF Problem List Clinical Impression: Abdominal pain, Vomiting Patient/Caregiver Discharge Instructions Print Language: Stateless
[2025-08-07] MEDS: SODIUM CHLORIDE 0.9% 1000 ML 1,000 ML 999 ML IV (03:27)
[2025-08-07] MEDS: MORPHINE SULF INJ 4 MG/ML VIAL IV (03:28)
[2025-08-07] MEDS: KETOROLAC INJ 30 MG/ML VIAL IVP (03:28)
[2025-08-07] MEDS: ONDANSETRON INJ 2 MG/ML INJ 2 ML 4 MG IVP ×2 (03:28→04:52)
[2025-08-07 03:52] LABS: Basophils # (Auto) 0.0 Thou/mm3 (0.0-0.2); Basophils % (Auto) 0 % (0-2.5); Eosinophils # (Auto) 0.3 Thou/mm3 (0.0-0.5); Eosinophils % (Auto) 3 % (0-10); Hematocrit 23.5 % (36.0-46.0); Immature Granulocytes Auto 0.07 Thou/mm3 (0.00-0.00); Lymphocytes # (Auto) 1.4 Thou/mm3 (1.0-4.8); Lymphocytes % (Auto) 17 % (10-50); Mean Corpuscular HGB Conc 35.7 g/dl (31.0-37.0); Mean Corpuscular Hemoglobin 31.0 pg (25.0-35.0); Mean Corpuscular Volume 87 fL (80-100); Monocytes # (Auto) 0.5 Thou/mm3 (0.0-0.8); Monocytes % (Auto) 6 % (0-12); Neutrophils # (Auto) 6.1 Thou/mm3 (1.8-7.7); Neutrophils % (Auto) 73 % (37-80); Nucleated Red Blood Cell # 0.00 Thou/mm3 (0.00-0.00); Nucleated Red Blood Cell % 0 /100 WBC (0); Platelet Count 272 Thou/mm3 (140-440); RDW Standard Deviation 40.2 fL (36.4-46.3); Red Blood Count 2.71 Miln/mm3 (4.00-5.20); White Blood Count 8.3 Thou/mm3 (3.6-11.0)
[2025-08-07 04:04] LABS: Hemoglobin 8.4 g/dL (12.0-16.0)
--- NOTE | 2025-08-07 04:06 | PC.NURSE ---
Pt taken to CT via janel
[2025-08-07 04:20] LABS: Alanine Aminotransferase 172 U/L (10-49); Albumin, Serum 5.0 gm/dL (3.4-4.8); Albumin/Globulin Ratio 2.2 (1.2-2.2); Alkaline Phosphatase 153 U/L (46-116); Amylase 99 U/L (30-118); Anion Gap 12 (7-16); Aspartate Amino Transferase 276 U/L (0-34); BUN/Creatinine Ratio 16 Ratio (12-20); Bilirubin,Direct 0.4 mg/dL (0.0-0.3); Bilirubin,Total 0.6 mg/dL (0.3-1.2); Blood Urea Nitrogen 24 mg/dL (9-23); Calcium 9.2 mg/dL (8.3-10.6); Calcium (Corrected) 9.2 mg/dL (8.5-10.1); Carbon Dioxide 21.1 mMol/L (20.0-31.0); Chloride 108 mMol/L (98-107); Creatinine (Component) 1.5 mg/dL (0.6-1.3); Estimated Creatinine Clearance 36.0 mL/min (>60); Globulin 2.3 gm/dL (2.3-3.5); Glucose 233 mg/dL (74-106); Lipase 71 U/L (12-53); Magnesium 1.4 mg/dL (1.6-2.6); Osmolality,Calculated 292 (275-295); Potassium 4.2 mMol/L (3.4-5.1); Sodium 141 mMol/L (136-145); Total Protein 7.3 gm/dL (5.7-8.2); eGFR 39 See Note
[2025-08-07] MEDS: Magnesium Sulfate 2 GM Ivpb 2 GM/50 ML BAG IV (04:52)
[2025-08-07 05:00] VITALS: BP 140/67; PULSE 95; RESP 18; TEMP 37; O2SAT 95
[2025-08-07] MEDS: SODIUM CHLORIDE 0.9% 1000 ML 1,000 ML 500 ML IV (05:30)
[2025-08-07 05:38] LABS: Collection Type, Urine Clean Catch
[2025-08-07 05:42] LABS: Bilirubin,Urine Negative (Negative); Blood,Urine 1+ (Negative); Clarity,Urine Clear (Clear/Hazy); Color,Urine Lt-Yellow (Lt Yel-Yel); Culture Indicated,Urine Not Indicated; Glucose, Urine 1+ (Negative); Ketones,Urine Negative (Negative); Leukocyte Esterase,Urine Negative (Negative); Nitrite,Urine Negative (Negative); PH,Urine 5.5 (5.0-7.0); Protein,Urine 2+ (Neg - Trace); RBC,Urine 2 /hpf (0-3); Specific Gravity,Urine 1.013 (1.001-1.035); Squamous Epithelial Cell,Urine < 1 /hpf (0-5); Urobilinogen,Urine Negative mg/dL (0.0-1.0); WBC,Urine 1 /hpf (0-5)
--- NOTE | 2025-08-07 05:51 | PRELIM_ITS ---
Right upper quadrant abdominal ultrasound with Doppler and wave Doppler spectral analysis. August 07, 2025 at 0419 hours Clinical history: Right upper quadrant tenderness. Technique: Grayscale and color flow images of the right upper quadrant are provided. Hepatic and portal veins were also imaged with color flow images. Comparison: None available at the time of this report. Findings: The liver is normal in echogenicity. No intrahepatic biliary ductal dilatation. Gallstones. Distended gallbladder. No gallbladder wall thickening or pericholecystic fluid is demonstrated. The common bile duct is normal in caliber at 6.6 mm. The pancreas is unremarkable to the extent visualized. The portal vein is patent with hepatopetal flow and normal wave Doppler spectral analysis. The IVC is patent with normal wave Doppler spectral analysis. Lin sign is not available at the time of this report. Impression: Gallstones and distended gallbladder without evidence of acute cholecystitis. If the clinical suspicion for acute cholecystitis is still high consider correlation with HIDA scan. Report Electronically Signed By: Christofer Douglass 08/07/2025 5:50:30 AM [EST]
--- NOTE | 2025-08-07 05:52 | PRELIM_ITS ---
CT scan of the abdomen and pelvis without intravenous contrast (axial sections with sagittal and coronal reformats) August 07, 2025 at 0412 hours Clinical History: Abdominal pain. Comparison: None available at the time of this report. Findings: The lung bases are clear. The pancreas, spleen and adrenals are unremarkable on this noncontrast study. Mild bilateral perinephric fat stranding. Nonobstructing bilateral kidney stones. No hydronephrosis. Mild irregular liver margins. Hepatomegaly. Prominent gallbladder. No evidence of bowel obstruction. The appendix is within normal limits. There is no mesenteric or retroperitoneal adenopathy. Prolapse of the urinary bladder. There is no free fluid or free air. Degenerative changes of the imaged portions of the spine. No acute fractures. Chronic multilevel disc disease. The uterus and ovaries are within normal limits. Impression: 1. Hepatomegaly and probable cirrhosis. 2. Prominent gallbladder, if acute cholecystitis is clinically suspected consider correlation with right upper quadrant ultrasound. 3. Bilateral nonobstructing nephrolithiasis. 4. Mild bilateral perinephric fat stranding, suspicious for medical renal disease. Please, correlate clinically. 5. Urinary bladder prolapse. Report Electronically Signed By: Christofer Douglass 08/07/2025 5:51:14 AM [EST]
--- NOTE | 2025-08-07 07:10 | PC.NURSE ---
pt up to restroom at this time
--- NOTE | 2025-08-07 07:23 | PC.NURSE ---
pt resting in bed in no apparent distress. pt states that pain is better at this time and rates pain 1/10. v/s updated. call light within reach
[2025-08-07 07:25] VITALS: BP 157/75; PULSE 98; RESP 18; TEMP 36.9; O2SAT 96
--- NOTE | 2025-08-07 08:27 | PC.NURSE ---
DR GUTIERREZ IN ROOM TO SPEAK WITH PT REGARDING RESULTS
--- NOTE | 2025-08-07 11:40 | PD.EDADDENDU ---
Emergency Room Addendum Addendum Narrative: 0600: Care assumed from Dr. Hall, the previous shift emergency physician. Past medical, surgical, social and family history reviewed. Vitals and home medications reviewed. I will assume the care of the patient at this time, pending labs, CT, and US. Please refer to the emergency department record for history and examination from initial visit.?The following addendum documentation note is intended to reflect any pending information, findings, or radiology results not included in the patient?s initial chart. I reviewed the labs which was remarkable for Hgb of 8.4, creatinine 1.5, eGFR 36, glucose 233, AST/ALT 276/172, alkaline phosphate 153, and magnesium 1.4. Urinalysis was unremarkable. CT abdomen/pelvis showed enlarged gallbladder and the gallbladder ultrasound showed cholelithiasis and enlarged common bile duct 0.70 cm. Through ED course, the patient was given IV fluids, morphine, toradol, zofran, and magnesium. During my watch, patient has remained gretchen stable. We reviewed all the results, analysis, and treatment plans. Patient is amenable to discharge. Strict return precautions were outlined.
== END 2025-08-07 08:50 | disposition home or self-care (01) ==
PROVIDERS: Emergency Medicine; Emergency Provider Family Medicine; PCP Family Medicine
DX: K80.20 Calculus of gallbladder without cholecystitis without obstruction (principal); K83.8 Other specified diseases of biliary tract
CPT/HCPCS: 36415; 51701; 74176; 76705; 80053; 81001; 82150; 82248; 83690; 83735; 85025; 96361; 96365; 96366; 96375; 96376; 99284; J1885; J2270; J2405; J3475; J7030

== ENCOUNTER 2025-08-07 21:07 | Emergency (ER) | payer MEDICAID, SELFPAY ==
[2025-08-07 21:08] VITALS: BMI 30.9
[2025-08-07 21:15] VITALS: BP 164/71; PULSE 111; RESP 24; TEMP 36.7; O2SAT 99
--- NOTE | 2025-08-07 21:26 | EDNOTE_ITS ---
ED Abdominal Pain RME/HPI General Chief Complaint: Abdominal Pain Stated complaint: RUQ ABD PAIN (HX GALLSTONES) Time seen by provider: 08/07/25 21:26 Arrival date/time: 08/07/25 21:07 RME / HPI RME / HPI narrative: See [facility] for Dr. Hall's HPI Documentation. Related Data Home Medications ?Medication ?Instructions ?Recorded ?Confirmed acetaminophen 650 mg 500 mg PO Q8H PRN fever or p ain 08/13/20 07/11/25 tablet,extended release Held on 08/14/20. Instructions: Resume on 08/26/20. Previous Rx's ?Medication ?Instructions ?Recorded docusate sodium 100 mg capsule 100 mg PO BID #60 caps 08/14/20 (Colace) hydrocodone 5 mg-acetaminophen 325 1 tab PO Q6H PRN pa in (scale score 08/14/20 mg tablet ([place]) 7-10) #20 tabs acetaminophen 300 mg-codeine 30 mg 1 tab PO Q6H PRN pa in #15 tabs 04/06/24 tablet acetaminophen 300 mg-codeine 30 mg 1 tab PO Q6H PRN pa in #30 tabs 04/06/24 tablet ibuprofen 600 mg tablet 600 mg PO Q6H PRN pain #30 t abs 04/06/24 ibuprofen 600 mg tablet 600 mg PO Q8H PRN pain (scal e 07/18/24 score 4-6) #60 tabs meloxicam 7.5 mg tablet 7.5 mg PO QDAY #45 tabs 03/0 03/05 Allergies Allergy/AdvReac Type Severity Reaction Status Date / Time bee venom protein (honey bee) Allergy Severe Anaphylaxis Verified 08/07/25 21:10 tetracycline Allergy Severe suicidal Verified 08/07/25 21:10 Review of Systems Review of Systems Systems Reviewed: All systems reviewed, normal except as documented Past Medical History Past Medical History NEUROLOGIC: Positive Peripheral Neuropathy and Head Trauma CARDIAC: Positive Cardiac Disorders and Hypertension REPRODUCTIVE: Positive Endometriosis MUSCULOSKELETAL: Positive Musculoskeletal Disorders, Arthritis, Carpal Tunnel Syndrome and Fractures ENT: Positive Head Trauma ENDOCRINE: Positive Endocrine Disorders and Diabetes Mellitus Type 2 OTHER HISTORY: Positive Falls and Anesthesia Reactions Family History FAMILY HISTORY: Positive Family Cancer and Family Surgery ED Exam Narrative Physical exam: See [facility] for Dr. Hall's Physical Exam Documentation. Course Quality Measures none Orders Category Date Time Status MRI Screening NOW Care 08/07/25 21:27 Active Saline [Insert IV] NOW Care 08/07/25 21:26 Active Consult to General Surgery Stat Cons 08/07/25 22:31 Ordered MR MRCP Stat Exams 08/07/25 Ordered Bilirubin,Direct Stat Lab 08/07/25 22:59 Completed CBC Stat Lab 08/07/25 22:59 Completed CMP [Comprehensive Metabolic Panel] Stat Lab 08/07/25 22:59 Completed CRP [C-Reactive Protein] Stat Lab 08/07/25 22:59 Completed ESR [Sed Rate (ESR)] Stat Lab 08/07/25 22:59 Completed Lipase Stat Lab 08/07/25 22:59 Completed Magnesium Stat Lab 08/07/25 22:59 Completed Procalcitonin Stat Lab 08/07/25 22:59 Completed HYDROmorphone INJ [Dilaudid Inj] Med 08/07/25 21:26 Discontinued 1 mg IVP X1 ONE Ketorolac Inj [Toradol Inj] Med 08/07/25 21:26 Discontinued 30 mg IVP X1 ONE Ondansetron Inj [Zofran Inj] Med 08/07/25 21:26 Discontinued 4 mg IVP X1 ONE Sodium Chloride 0.9% 1000 ml [Ns] 1,000 ml Med 08/07/25 21:26 Discontinued IV 999 mls/hr Vital Signs Vital signs: Vital Signs Temperature 98.0 F 08/07/25 21:15 Pulse Rate 111 H 08/07/25 21:15 Respiratory Rate 24 H 08/07/25 21:15 Blood Pressure 164/71 H 08/07/25 21:15 Pulse Oximetry (%) 99 08/07/25 21:15 Oxygen Delivery Method Room Air 08/07/25 21:15 Abdominal Pain [facility] Narrative [facility] Narrative:: This section includes all my notes and documentations, including HPI, PE, and ED course. Cecilio Hall MD HPI: 64 y/o female with continued right sided upper abdominal pain and vomiting. Was seen here yesterday. Was discharged with diagnosis of cholelithiasis. No other complaints. ROS: All negative except as documented in HPI. Physical Exam: General: Alert and oriented. In severe pain. Eyes: Conjunctivae and lids clear. ENT: No nasal congestion. Neck: Supple. Heart: RRR. Lungs: No respiratory distress. Good air movement. No rhonchi, wheezing, rales. Abdomen: Soft with RUQ tenderness. Decreased bowel sounds. No distension. No rebound or guarding. Back: No CVA tenderness. Skin: Warm and dry. Neuro: Alert and oriented X 3. I reviewed all diagnostic test results: Blood tests remarkable for T bili 2.1, D bili 1.5, AST 1158, ALT 1181, alk phos 212. At this point, diagnoses include: Biliary colic CBD dilatation LFT elevation Treatment here included: IVF Zofran 4 mg IV Toradol 30 mg IV Dilaudid 1 mg IV Some improvement noted. I discussed the case with our general surgeon, Dr. Meredith. About the presentation and exam and diagnostics and treatments here. And possible need of further care in the hospital. Recommended MRCP. MRCP ordered. At 0600 on 08/08/2025, the care of the patient was transferred to Dr. Cline. Patient pending MRCP. Cecilio Hall MD Patient data External records reviewed:: [facility] previous records (Reviewed prior ED records from 08/07/2025. Patient was seen for Abdominal pain.) Clinical information provided by:: patient Social determinants that could affect healthcare access:: none Patient has the following chronic illnesses:: Peripheral Neuropathy, Hypertension, Endometriosis, Arthritis, Carpal Tunnel Syndrome, Diabetes Mellitus Type 2 How is presenting disease/condition affected by chronic disease/condition?: exacerbated by Evaluation data The following diagnostics were reviewed and interpreted by me:: lab results Lab and/or radiology exams considered but not ordered:: None Interpretation Summary: I reviewed all diagnostic test results: Blood tests remarkable for T bili 2.1, D bili 1.5, AST 1158, ALT 1181, alk phos 212. Medications / Prescriptions Medications or Prescriptions considered but not ordered:: None Medication administrations:: Medication Administration History Discontinued Medications Hydromorphone HCl (Hydromorphone Inj 2 Mg/Ml Vial) 1 mg IVP X1 ONE Stop: 08/07/25 21:27 Last Admin: 08/07/25 23:06 Dose: 1 mg Documented By: LARISSA Sodium Chloride (Ns) 1,000 mls @ 999 mls/hr IV .Q1H1M ONE Stop: 08/07/25 22:26 Last Infusion: 08/08/25 00:52 Dose: Infused Documented By: Admin: 08/07/25 23:04 Dose: 999 mls/hr Documented By: LARISSA Ketorolac Tromethamine (Ketorolac Inj 30 Mg/Ml Vial) 30 mg IVP X1 ONE Stop: 08/07/25 21:27 Last Admin: 08/07/25 23:06 Dose: 30 mg Documented By: LARISSA Ondansetron HCl (Ondansetron Inj 2 Mg/Ml Inj 2 Ml) 4 mg IVP X1 ONE; Protocol Stop: 08/07/25: Last Admin: 08/07/25 23:06 Dose: 4 mg Documented By: LARISSA Treatment here included: IVF Zofran 4 mg IV Toradol 30 mg IV Dilaudid 1 mg IV Consultations Consultation(s) initiated? (list below): Yes Consultation #1 (Physician, Specialty, Details): I discussed the case with our general surgeon, Dr. Matute. About the presentation and exam and diagnostics and treatments here. And possible need of further care in the hospital. Recommended MRCP. Time: 22:24 Diagnosis Differential diagnosis abdominal pain: acute appendicitis, calculus of kidney, constipation, diverticulitis, endometriosis, gastroenteritis, pancreatitis, small bowel obstruction and other (Biliary colic) Most likely diagnosis given after review of the tests above:: Biliary colic CBD dilatation LFT elevation Admission Indicated Admission indicated?: not indicated Explain why admission is indicated or not indicated:: Complete diagnostic tests are pending, including MRCP. Admission Request Was there a request for admission?: No Disposition Plan Disposition Plan: other (specify) (At 0600 on 08/08/2025, the care of the patient was transferred to Dr. Cline. ) Discharge Plan Prescriptions/Referrals Prescriptions/Med Rec: No Action ropivacaine (PF) 2 mg/mL (0.2 %) solution 20 ml Infiltration X1 Qty: 20 0RF methylprednisolone acetate 80 mg/mL suspension 80 mg intra-articular X1 Qty: 1 0RF ibuprofen 600 mg tablet 600 mg PO Q8H PRN (Reason: pain (scale score 4-6)) Qty: 60 2RF meloxicam 7.5 mg tablet 7.5 mg PO QDAY Qty: 45 3RF acetaminophen 650 mg tablet extended release 500 mg PO Q8H PRN (Reason: fever or pain) Rx Instructions: swallow whole; do not crush, chew, break, dissolve, cut, or open hydrocodone-acetaminophen [[place]] 5-325 mg tablet 1 tab PO Q6H MDD 4 PRN (Reason: pain (scale score 7-10)) Qty: 20 0RF docusate sodium [Colace] 100 mg capsule 100 mg PO BID Qty: 60 0RF ibuprofen 600 mg tablet 600 mg PO Q6H PRN (Reason: pain) Qty: 30 0RF acetaminophen-codeine 300-30 mg tablet 1 tab PO Q6H PRN (Reason: pain) Qty: 30 0RF acetaminophen-codeine 300-30 mg tablet 1 tab PO Q6H PRN (Reason: pain) Qty: 15 0RF Referrals: No Primary/Family,Physician [Primary Care Provider] - In 1 week Problem List Clinical Impression: Biliary colic, Common bile duct dilatation, LFT elevation Patient/Caregiver Discharge Instructions Print Language: Malaysian
[2025-08-07] MEDS: SODIUM CHLORIDE 0.9% 1000 ML 1,000 ML 999 ML IV (23:04)
[2025-08-07] MEDS: HYDROmorphone INJ 2 MG/ML VIAL 1 MG IVP (23:06)
[2025-08-07] MEDS: ONDANSETRON INJ 2 MG/ML INJ 2 ML 4 MG IVP (23:06)
[2025-08-07] MEDS: KETOROLAC INJ 30 MG/ML VIAL IVP (23:06)
[2025-08-07 23:09] VITALS: BP 151/65; PULSE 99; RESP 20; O2SAT 98
[2025-08-07 23:15] LABS: Basophils # (Auto) 0.0 Thou/mm3 (0.0-0.2); Basophils % (Auto) 0 % (0-2.5); Eosinophils # (Auto) 0.1 Thou/mm3 (0.0-0.5); Eosinophils % (Auto) 2 % (0-10); Hematocrit 28.9 % (36.0-46.0); Hemoglobin 9.7 g/dL (12.0-16.0); Immature Granulocytes Auto 0.06 Thou/mm3 (0.00-0.00); Lymphocytes # (Auto) 1.0 Thou/mm3 (1.0-4.8); Lymphocytes % (Auto) 14 % (10-50); Mean Corpuscular HGB Conc 33.6 g/dl (31.0-37.0); Mean Corpuscular Hemoglobin 29.8 pg (25.0-35.0); Mean Corpuscular Volume 89 fL (80-100); Monocytes # (Auto) 0.4 Thou/mm3 (0.0-0.8); Monocytes % (Auto) 5 % (0-12); Neutrophils # (Auto) 6.0 Thou/mm3 (1.8-7.7); Neutrophils % (Auto) 79 % (37-80); Nucleated Red Blood Cell # 0.00 Thou/mm3 (0.00-0.00); Nucleated Red Blood Cell % 0 /100 WBC (0); Platelet Count 284 Thou/mm3 (140-440); RDW Standard Deviation 42.5 fL (36.4-46.3); Red Blood Count 3.26 Miln/mm3 (4.00-5.20); White Blood Count 7.7 Thou/mm3 (3.6-11.0)
[2025-08-07 23:28] LABS: Sed Rate (ESR) 48 mm/hr (0-30)
[2025-08-07 23:45] LABS: Albumin, Serum 5.4 gm/dL (3.4-4.8); Albumin/Globulin Ratio 2.3 (1.2-2.2); Alkaline Phosphatase 212 U/L (46-116); Anion Gap 11 (7-16); BUN/Creatinine Ratio 14 Ratio (12-20); Bilirubin,Direct 1.5 mg/dL (0.0-0.3); Bilirubin,Total 2.1 mg/dL (0.3-1.2); Blood Urea Nitrogen 22 mg/dL (9-23); C-Reactive Protein 0.9 mg/dL (0.0-0.9); Calcium 10.0 mg/dL (8.3-10.6); Calcium (Corrected) 10.0 mg/dL (8.5-10.1); Carbon Dioxide 23.9 mMol/L (20.0-31.0); Chloride 110 mMol/L (98-107); Creatinine (Component) 1.6 mg/dL (0.6-1.3); Estimated Creatinine Clearance 34.5 mL/min (>60); Globulin 2.3 gm/dL (2.3-3.5); Glucose 179 mg/dL (74-106); Lipase 80 U/L (12-53); Magnesium 2.0 mg/dL (1.6-2.6); Osmolality,Calculated 296 (275-295); Potassium 4.3 mMol/L (3.4-5.1); Procalcitonin 0.48 ng/ml (0.0-0.49); Sodium 145 mMol/L (136-145); Total Protein 7.7 gm/dL (5.7-8.2); eGFR 36 See Note
[2025-08-07 23:50] LABS: Alanine Aminotransferase 1181 U/L (10-49); Aspartate Amino Transferase 1158 U/L (0-34)
--- NOTE | 2025-08-08 | XR_ITS ---
MRI abdomen, without contrast. MRCP Date and time of exam: August 08, 2025, 1055 hours INDICATIONS: Right upper abdominal pain and elevated liver function tests on laboratory examination 3 days ago Technique: Multiple axial and coronal images of the abdomen have been obtained with the Siemens 1.5T MRI scanner. Images obtained included T1 weighted transverse images, T2-weighted transverse images, T2-weighted transverse images fat-suppressed, T2 weighted haste fat suppressed transverse images, T1 weighted images, in and out of phase images, T2-weighted coronal images, breath hold, T2 weighted haze coronal images as well as T2 weighted coronal thick slab images, MRCP. Findings: Multiple gallstones There does appear to be mild edema involving the wall of the gallbladder Coronal image 14 demonstrates a 3 mm stone in the common bile duct Negative for pancreatitis Spleen is not enlarged Perinephric stranding Aorta normal size, no focal liver lesions IMPRESSION: Acute calculus cholecystitis 3 mm stone in the common bile duct, consider ERCP follow-up
[2025-08-08 00:06] VITALS: TEMP 36.7
[2025-08-08 03:05] VITALS: BP 143/67; PULSE 94; RESP 18; TEMP 36.6; O2SAT 94
[2025-08-08 07:48] VITALS: BP 168/82; PULSE 90; RESP 12; TEMP 36.8; O2SAT 94
--- NOTE | 2025-08-08 08:22 | EDNOTE_ITS ---
Emergency Room Addendum <Delaney Moore - Last Filed: 08/08/25 12:26> Addendum Narrative: 0600: Care assumed from Dr. Hall, the previous shift emergency physician. Past medical, surgical, social and family history reviewed. Vitals and home medications reviewed. I will assume the care of the patient at this time, pending MRCP and final disposition. Please refer to the emergency department record for history and examination from initial visit.?The following addendum documentation note is intended to reflect any pending information, findings, or radiology results not included in the patient?s initial chart. MRCP shows a 3mm stone in the common bile duct and acute calculous cholecystitis. <Noel Haq MD - Last Filed: 08/08/25 13:47> Addendum Narrative: 0600: Care assumed from Dr. Hall, the previous shift emergency physician. Past medical, surgical, social and family history reviewed. Vitals and home medications reviewed. I will assume the care of the patient at this time, pending MRCP and final disposition. Please refer to the emergency department record for history and examination from initial visit.?The following addendum documentation note is intended to reflect any pending information, findings, or radiology results not included in the patient?s initial chart. MRCP shows a 3mm stone in the common bile duct and acute calculous cho lecystitis. Patient is have elevated liver enzymes and she had no previous gastric bypass surgery I spoke with the GI specialist at [facility] and he agreed to take the patient there for ERCP Meanwhile patient was given IV antibiotics Her pain was controlled Final diagnosis Common bile duct stone No evidence of cholangitis No evidence of sepsis Possible acute cholecystitis Plan Transfer patient to [facility] for ERCP Keep n.p.o. Patient was transferred in good condition
[2025-08-08 09:42] VITALS: BP 149/80; PULSE 92; RESP 18; TEMP 36.9; O2SAT 100
[2025-08-08 12:54] VITALS: BP 170/73; PULSE 98; RESP 18; TEMP 36.8; O2SAT 98
--- NOTE | 2025-08-08 12:58 | PC.CC ---
Addendum entered by Asif Beckwith RN 08/08/25 14:29: late entry: at 1340: called [facility] spoke to Gerson to cancel transfer request Addendum entered by Asif Beckwith RN 08/08/25 14:28: 1428: called Anne with update on ETA. Addendum entered by Asif Beckwith RN 08/08/25 14:06: 1404: CN Jenna updated on transport time Addendum entered by Asif Beckwith RN 08/08/25 14:03: 1400: transport set up for 1445 1351: transfer packet w/ 1 CDtaken to ED. Addendum entered by Asif Beckwith RN 08/08/25 13:43: 1340: Dr. Shaw accepted, ED to ED. CALL REPORT TO [phone] 1338: Peer to peer completed between Dr. Gutierrez and Dr. Shaw 1335: received call back from Anne carson/ [facility]. Emtala questions asked. Addendum entered by Asif Beckwith RN 08/08/25 13:26: transfer packet with 1 CD created Addendum entered by Asif Beckwith RN 08/08/25 13:25: 1317: received call from Gerson carson/ [facility]. updated vs requested and provided. She informed me that GI oncall Dr. Bose is reviewing now. Gerson will call back with determination. Addendum entered by Asif Beckwith RN 08/08/25 13:01: 1300: called [facility] will review clinicals and call back Original Note: clinicals and images sent to Beronica and Stefanie. Clinicals [facility] for GI service for 3mm CBD stone w/ elevated LFT's and acute cholecystitis.
[2025-08-08 13:39] VITALS: PULSE 115; RESP 20; RESP 79; O2SAT 92
[2025-08-08] MEDS: cefTRIAXone 2 GM in SODIUM CHLORIDE 0.9% (Popper) 50 ML IV (13:40)
--- NOTE | 2025-08-08 14:36 | PC.NURSE ---
CALLED [facility] AND SPOKE TO OSVALDO LE TO WHOM I GAVE REPORT TOO.
== END 2025-08-08 14:37 | disposition short-term general hospital (02) ==
PROVIDERS: Emergency Medicine; Emergency Provider Emergency Medicine
DX: K80.42 Calculus of bile duct with acute cholecystitis without obstruction (principal); Z75.1 Person awaiting admission to adequate facility elsewhere
CPT/HCPCS: 36415; 74181; 80053; 82248; 83690; 83735; 84145; 85025; 85652; 86140; 96361; 96365; 96375; 99285; J0696; J1171; J1885; J2405; J7030; J7050